=== PATIENT | female | born 1975 | race Caucasian/White ===

== ENCOUNTER 2018-07-31 05:29 | Inpatient (IN) | payer OTHER ==
[2018-07-31] MEDS ORDERED: LACTATED RINGER'S 1,000 ML IV* (06:00)
[2018-07-31] MEDS ORDERED: GELATIN SIZE 100 SPONGE (06:55)
[2018-07-31] MEDS ORDERED: CEFAZOLIN 1 GM INJ (06:55)
[2018-07-31] MEDS ORDERED: DESFLURANE 15 MIN (07:00)
[2018-07-31] MEDS ORDERED: ONDANSETRON 4 MG INJ IV (07:30)
[2018-07-31] MEDS ORDERED: HYDROmorphONE 1 MG/5 ML IV SYRINGE IV ×3 (07:30)
[2018-07-31] MEDS ORDERED: MEPERIDINE 25 MG INJ IV ×2 (07:30→15:30)
[2018-07-31] MEDS ORDERED: ALBUTEROL 0.083% (NEB) 2.5 MG/3 ML AMP HHN (07:30)
[2018-07-31] MEDS ORDERED: DIPHENHYDRAMINE 50 MG INJ IV ×2 (07:30→15:30)
[2018-07-31] MEDS ORDERED: METOCLOPRAMIDE 10 MG INJ IV (07:30)
[2018-07-31] MEDS ORDERED: FENTAnyl 50 MCG/ML VIAL IV ×4 (07:30→15:30)
[2018-07-31] MEDS ORDERED: FENTAnyl 50 MCG/ML VIAL ×6 (07:35→13:28)
[2018-07-31] MEDS ORDERED: VANCOMYCIN 1 GM INJ (08:20)
[2018-07-31] MEDS ORDERED: MIDAZOLAM 1 MG/ML 2 ML INJ (08:29)
[2018-07-31] MEDS: LIDOCAINE 1%/EPI (1:100,000) (MDV) 20 ML (09:05)
[2018-07-31] MEDS: POLYMYXIN/BACITRACIN 1L IRRIG (09:05)
[2018-07-31] MEDS ORDERED: ROCURONIUM 50 MG INJ (09:06)
[2018-07-31] MEDS ORDERED: PROPOFOL 20 ML (09:06)
[2018-07-31] MEDS ORDERED: SUCCINYLCHOLINE CHLORIDE 100 MG/5 ML SYG IV (09:06)
[2018-07-31] MEDS ORDERED: LIDOCAINE 100 MG SYRINGE (09:06)
[2018-07-31] MEDS: GELATIN SIZE 100 SPONGE TOP ×2 (11:56)
[2018-07-31] MEDS: THROMBIN (BOVINE) 5,000 UNIT VIAL TP (11:56)
[2018-07-31] MEDS ORDERED: LABETALOL HCL 20MG INJ ×2 (12:11→14:20)
[2018-07-31] MEDS ORDERED: SUGAMMADEX SODIUM 200 MG/2 ML VIAL IV (14:11)
[2018-07-31] MEDS ORDERED: NALOXONE (0.4 MG/ML) INJ IV (14:30)
[2018-07-31] MEDS ORDERED: ACETAMINOPHEN 325 MG TAB PO (14:30)
[2018-07-31] MEDS ORDERED: HYDROCODONE/APAP (5/325) TAB PO ×2 (14:30)
[2018-07-31] MEDS ORDERED: NACL 0.9% 3 ML SYG IV (14:30)
[2018-07-31] MEDS ORDERED: ONDANSETRON 4 MG INJ (14:37)
[2018-07-31] MEDS: ONDANSETRON 4 MG INJ IV ×3 (15:22→20:40)
[2018-07-31] MEDS: FENTAnyl 50 MCG/ML VIAL IV ×2 (15:32→16:03)
[2018-07-31] MEDS: morphine 1 MG/ML 30 ML (PCA) IV (16:09)
[2018-07-31] MEDS: SOD CHLORIDE 0.45% 1,000 ML IV (16:47)
[2018-07-31] MEDS: VANCOMYCIN 1 GM (PMX) 250 ML IVPB (20:41)
[2018-07-31] MEDS: DIAZEPAM 5 MG TAB PO (20:45)
[2018-07-31] MEDS: DIPHENHYDRAMINE 50 MG CAP PO (20:46)
[2018-07-31] MEDS: CEPASTAT LOZENGE MT (20:46)
[2018-07-31] MEDS ORDERED: GLUCOSE GEL 15 GRAM TUBE BUCCAL (22:00)
[2018-07-31] MEDS ORDERED: GLUCOSE GEL 15 GRAM TUBE PO ×2 (22:00)
[2018-07-31] MEDS ORDERED: GLUCAGON 1 MG INJ IM (22:00)
[2018-07-31] MEDS ORDERED: DEXTROSE 50% 50 ML SYRINGE IV ×2 (22:00)
[2018-07-31] MEDS: ZOLPIDEM 5 MG TAB PO (22:06)
[2018-08-01] MEDS: SOD CHLORIDE 0.45% 1,000 ML IV ×4 (00:24→21:00)
[2018-08-01] MEDS: DIAZEPAM 5 MG TAB PO ×4 (00:42→19:22)
[2018-08-01] MEDS: morphine 1 MG/ML 30 ML (PCA) IV (01:09)
[2018-08-01] MEDS: ONDANSETRON 4 MG INJ IV ×4 (01:56→22:48)
[2018-08-01 05:16] LABS: HEMATOCRIT 34.4 % (37.0-47.0); HEMOGLOBIN 11.6 g/dl (12.0-16.0)
[2018-08-01 05:37] LABS: ANION GAP 11 (5-13); BLOOD UREA NITROGEN 4 mg/dl (7-20); CALCIUM 8.7 mg/dl (8.4-10.2); CARBON DIOXIDE 25 mmol/L (21-31); CHLORIDE 101 mmol/L (97-110); CREATININE 0.38 mg/dl (0.44-1.00); Estimated GFR > 60 mL/min (>60); GLUCOSE 221 mg/dl (70-220); POTASSIUM 3.4 mmol/L (3.5-5.1); SODIUM 137 mmol/L (135-144)
[2018-08-01] MEDS: VANCOMYCIN 1 GM (PMX) 250 ML IVPB (08:24)
[2018-08-01] MEDS: DOCUSATE SODIUM 100 MG CAP PO ×2 (08:25→21:07)
[2018-08-01] MEDS: INSULIN ASPART [NOVOLOG] 3 ML PEN SC ×4 (08:36→21:00)
[2018-08-01] MEDS: ACETAMINOPHEN 1000MG/100ML IV 100 ML IVPB (13:21)
[2018-08-01] MEDS: KETOROLAC 30 MG INJ IV (16:24)
[2018-08-01] MEDS: POTASSIUM CHLORIDE (SR) 20 MEQ TAB PO (16:26)
[2018-08-01] MEDS: CEPASTAT LOZENGE MT ×2 (17:15→21:33)
[2018-08-01] MEDS: ATORVASTATIN 40 MG TAB PO (21:07)
[2018-08-01] MEDS: morphine 2 MG INJ IV (21:07)
[2018-08-02] MEDS: KETOROLAC 30 MG INJ IV ×2 (00:14→12:39)
[2018-08-02] MEDS: DIAZEPAM 5 MG TAB PO ×3 (00:14→20:53)
[2018-08-02] MEDS: morphine 2 MG INJ IV ×3 (05:01→16:16)
[2018-08-02] MEDS: LEVOTHYROXINE 125 MCG TAB PO ×2 (06:11→21:23)
[2018-08-02] MEDS: CEPASTAT LOZENGE MT ×3 (07:24→19:57)
[2018-08-02] MEDS: INSULIN ASPART [NOVOLOG] 3 ML PEN SC ×4 (08:41→21:00)
[2018-08-02] MEDS: DOCUSATE SODIUM 100 MG CAP PO ×2 (09:05→20:53)
[2018-08-02] MEDS: ONDANSETRON 4 MG INJ IV ×3 (10:24→21:23)
[2018-08-02] MEDS ORDERED: morphine (ER) 15 MG TAB PO ×3 (14:00→17:00)
[2018-08-02] MEDS: LUBIPROSTONE 8 MCG CAPSULE PO ×2 (16:01→20:53)
[2018-08-02] MEDS ORDERED: MAGNESIUM HYDROXIDE 30ML CUP PO (20:30)
[2018-08-02] MEDS: SOD CHLORIDE 0.45% 1,000 ML IV (20:52)
[2018-08-02] MEDS: GABAPENTIN 100 MG CAP PO (20:53)
[2018-08-02] MEDS: morphine (ER) 15 MG TAB PO (20:54)
[2018-08-02] MEDS: CALCIUM CARBONATE 500 MG CHEW TAB PO (21:54)
[2018-08-02] MEDS: ATORVASTATIN 20 MG TAB PO (21:54)
[2018-08-03] MEDS: morphine 2 MG INJ IV ×2 (01:58→05:42)
[2018-08-03] MEDS: ONDANSETRON 4 MG INJ IV (04:02)
[2018-08-03] MEDS: CEPASTAT LOZENGE MT (04:06)
[2018-08-03 05:52] LABS: ADD MAN DIFF? NO
[2018-08-03 05:54] LABS: BASOPHILS % 0.3 % (0.0-2.0); EOSINOPHILS # 0.4 10^3/ul (0.0-0.5); HEMOGLOBIN 10.7 g/dl (12.0-16.0); LYMPHOCYTES # 1.6 10^3/ul (0.8-2.9); LYMPHOCYTES % 17.2 % (15.0-51.0); MEAN CORPUSCULAR HEMOGLOBIN 31.3 pg (29.0-33.0); MEAN CORPUSCULAR HGB CONC 33.4 g/dl (32.0-37.0); MEAN CORPUSCULAR VOLUME 93.6 fl (82.0-101.0); MEAN PLATELET VOLUME 11.5 fl (7.4-10.4); MONOCYTE # 1.1 10^3/ul (0.3-0.9); NEUTROPHILS % 66.1 % (39.0-77.0); PLATELET COUNT 170 10^3/UL (140-415); RED BLOOD COUNT 3.42 10^6/ul (4.20-5.40); RED CELL DISTRIBUTION WIDTH 12.4 % (11.5-14.5)
[2018-08-03 05:54] LABS: WHITE BLOOD COUNT 9.1 10^3/ul (4.8-10.8)
[2018-08-03 06:23] LABS: ANION GAP 5 (5-13); BLOOD UREA NITROGEN 4 mg/dl (7-20); CALCIUM 8.8 mg/dl (8.4-10.2); CARBON DIOXIDE 26 mmol/L (21-31); CHLORIDE 105 mmol/L (97-110); CREATININE 0.39 mg/dl (0.44-1.00); Estimated GFR > 60 mL/min (>60); GLUCOSE 185 mg/dl (70-220); POTASSIUM 3.3 mmol/L (3.5-5.1); SODIUM 136 mmol/L (135-144)
[2018-08-03] MEDS: DOCUSATE SODIUM 100 MG CAP PO (08:39)
[2018-08-03] MEDS: LUBIPROSTONE 8 MCG CAPSULE PO (08:39)
[2018-08-03] MEDS: POTASSIUM CHLORIDE (SR) 20 MEQ TAB PO ×2 (08:40→16:00)
[2018-08-03] MEDS: DIAZEPAM 5 MG TAB PO ×2 (08:40→12:10)
[2018-08-03] MEDS: GABAPENTIN 100 MG CAP PO (08:40)
[2018-08-03] MEDS: morphine (ER) 15 MG TAB PO (08:41)
[2018-08-03] MEDS: LEVOTHYROXINE 125 MCG TAB PO (08:41)
[2018-08-03] MEDS: CALCIUM CARBONATE 500 MG CHEW TAB PO ×2 (08:41→12:10)
[2018-08-03] MEDS: INSULIN ASPART [NOVOLOG] 3 ML PEN SC ×2 (08:43→12:31)
[2018-08-03] MEDS ORDERED: CALCIUM CARBONATE 500 MG CHEW TAB PO (08:50)
[2018-08-03] MEDS: HYDROCODONE/APAP (10/325) TAB PO (15:34)
== END 2018-08-03 16:30 | disposition home health service (06) | DRG 455 ==
LOC: REC 05:29 → MS1 16:30
PROVIDERS: Neurological Surgery
PROC: 0SG00AJ Fusion of Lumbar Vertebral Joint with Interbody Fusion Device, Posterior Approach, Anterior Column, Open Approach (ICD-10-PCS; principal; 2018-07-31 07:30)
PROC: 0SG0071 Fusion of Lumbar Vertebral Joint with Autologous Tissue Substitute, Posterior Approach, Posterior Column, Open Approach (ICD-10-PCS; 2018-07-31 07:30)
PROC: 0ST20ZZ Resection of Lumbar Vertebral Disc, Open Approach (ICD-10-PCS; 2018-07-31 07:30)
PROC: 4A11X4G Monitoring of Peripheral Nervous Electrical Activity, Intraoperative, External Approach (ICD-10-PCS; 2018-07-31 07:30)
DX: M43.16 Spondylolisthesis, lumbar region (principal); M51.16 Intervertebral disc disorders with radiculopathy, lumbar region; E11.9 Type 2 diabetes mellitus without complications; E78.5 Hyperlipidemia, unspecified; E03.9 Hypothyroidism, unspecified; I10 Essential (primary) hypertension; E87.6 Hypokalemia; F41.9 Anxiety disorder, unspecified; K59.00 Constipation, unspecified
CPT/HCPCS: 72100; 72110; 72131; 80048; 82962; 85014; 85018; 85025; 86850; 86900; 86901; 87086; 97110; 97116; 97162; 97530

== ENCOUNTER 2018-09-02 13:56 | Emergency (ER) | payer OTHER ==
[2018-09-02 14:49] LABS: URINE PH (Dip) POC 5.5 (5.0-8.5)
[2018-09-02 14:49] LABS: URINE BLOOD (Dip) POC 1+ (NEGATIVE); URINE KETONES (Dip) POC Negative (NEGATIVE); URINE LEUKOCYTE EST (Dip) POC Negative (NEGATIVE); URINE NITRITE (Dip) POC Negative (NEGATIVE); URINE TOTAL PROTEIN POC Negative (NEGATIVE)
[2018-09-02] MEDS: HYDROCODONE/APAP (5/325) TAB PO (16:03)
== END 2018-09-02 16:38 | disposition home or self-care (01) ==
LOC: E/R 13:56
DX: M54.41 Lumbago with sciatica, right side (principal); R31.9 Hematuria, unspecified; E11.9 Type 2 diabetes mellitus without complications; Z79.84 Long term (current) use of oral hypoglycemic drugs
CPT/HCPCS: 81003; 81025; 93971; 99284-25